=== PATIENT | male | born 1965 | race Caucasian/White ===

== ENCOUNTER 2019-01-01 08:23 | Emergency (ER) | payer BC ==
[~2019-01-01] VITALS: Ht 177.8 cm; Wt 86.2 kg
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
[2019-01-01 08:40] VITALS: BP 152/88
[2019-01-01] MEDS ORDERED: Ketorolac 30mg Inj IV ONE (09:00)
[2019-01-01] MEDS ORDERED: Morphine Sulfate 4mg/ml Inj (IV USE ONLY) IVP ONE (09:00)
--- NOTE | 2019-01-01 09:00 | NUR ---
ED Nurse Note: Went down for CT.
[2019-01-01] MEDS ORDERED: AMBIEN5 MG ORAL (09:04)
[2019-01-01] MEDS ORDERED: Morphine Sulfate 4mg/ml Inj (IV USE ONLY) ONE (09:09)
[2019-01-01] MEDS ORDERED: Ketorolac 30mg Inj ONE ×2 (09:09→09:15)
[2019-01-01 09:18] LABS: BASOPHILS % (AUTO) 2.4 % (0.0-2.0); EOSINOPHILS % (AUTO) 0.6 % (0.0-3.0); HEMOGLOBIN 15.5 G/DL (14.2-18.0); LYMPHOCYTES % (AUTO) 12.1 % (20.0-45.0); MEAN CORPUSCULAR VOLUME 94 FL (80-99); MONOCYTES % (AUTO) 7.1 % (1.0-10.0); NEUTROPHILS % (AUTO) 77.8 % (45.0-75.0); PLATELET COUNT 339 K/UL (150-450); RED CELL DISTRIBUTION WIDTH 12.3 % (11.6-14.8); WHITE BLOOD COUNT 12.4 K/UL (4.8-10.8)
--- NOTE | 2019-01-01 09:30 | NUR ---
ED Nurse Note: Came back from CT.
[2019-01-01 09:36] LABS: ANION GAP 7 mmol/L (5-15); BLOOD UREA NITROGEN 14 mg/dL (7-18); CALCIUM 9.3 MG/DL (8.5-10.1); CARBON DIOXIDE 29 MMOL/L (21-32); CHLORIDE 104 MMOL/L (98-107); CREATININE 1.1 MG/DL (0.55-1.30); POTASSIUM 4.1 MMOL/L (3.5-5.1); SODIUM 140 MMOL/L (136-145)
[2019-01-01 09:41] LABS: ALANINE AMINOTRANSFERASE 22 U/L (12-78); ALBUMIN 4.1 G/DL (3.4-5.0); ALBUMIN/GLOBULIN RATIO 1.3 (1.0-2.7); ALKALINE PHOSPHATASE 78 U/L (46-116); ASPARTATE AMINO TRANSFERASE 14 U/L (15-37); BILIRUBIN,TOTAL 0.3 MG/DL (0.2-1.0)
[2019-01-01 09:53] LABS: INR 0.9 (0.9-1.1)
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
[2019-01-01 12:11] VITALS: BP 140/70
[2019-01-01] MEDS ORDERED: NORCO 5-325 TA1 EACH ORAL (12:16)
[2019-01-01] MEDS ORDERED: IBUPROFEN600 MG ORAL (12:16)
[2019-01-01] MEDS ORDERED: Neosporin Oint Ud Pkt TOPIC ONE ×2 (12:45→13:07)
[2019-01-01 12:59] VITALS: BP 142/72
[2019-01-01] MEDS ORDERED: Bacitracin Oint 15gm Tube TOPIC ONE ×2 (13:08→13:15)
[2019-01-01] MEDS ORDERED: BACITRACIN15 GM TOPIC (13:21)
[2019-01-01] MEDS ORDERED: CEPHALEXIN500 MG ORAL (13:21)
[2019-01-01 13:55] VITALS: BP 135/70
--- NOTE | 2019-01-01 13:55 | NUR ---
ED Nurse Note: Pt cleared by ERMD for discharge. DC instructions/prescription was given and explained to pt and verbalized understanding of teachings. All medical deviecs such as ID band and Iv line removed. Pt is AAO x4, ambulatory and left with all personal belongings.
--- NOTE | 2019-01-02 10:44 | Diagnostic Imaging Report ---
Indication: Chest pain. Chest trauma Technique: Continuous helical transaxial imaging of the chest was obtained from the thoracic inlet to the upper abdomen. No intravenous contrast was administered. Coronal 2-D reformats were also obtained. Total Dose length Product (DLP): [address] Dose Index Volume (CTDIvol): 22.06 mGy Comparison: none Findings: There are acute nondisplaced fractures of the left third through sixth ribs in the lateral aspect of the chest. This is just lateral and anterior to the scapula. There is no associated hematoma significant soft tissue swelling or lung contusion. There is no pneumothorax. The lateral reconstructions best demonstrate an acute fracture of the upper sternum. This appears nondisplaced (#38-40/6 ). Associated soft tissue swelling noted. Ill-defined posterior basilar densities within the lungs likely represent atelectasis. There is no mediastinal fluid or hematoma. Vascular structures are unopacified on this exam. The heart is unremarkable. There is no pleural effusion. There is a duodenal diverticulum in the area of the second portion of the duodenum. Accessory spleen noted. Visualized upper abdomen is otherwise unremarkable. IMPRESSION: Acute upper sternal fracture nondisplaced. Acute rib fractures involving the left third through sixth ribs. No associated deeper injuries. Posterior basal atelectasis The CT scanner at [facility] is accredited by the [employer] and the scans are performed using dose optimization techniques as appropriate to a performed exam including Automatic Exposure control.
== END 2019-01-01 13:55 | disposition home or self-care (01) ==
LOC: EMR 09:06
DX: S22.42XA Multiple fractures of ribs, left side, initial encounter for closed fracture (principal); S22.22XA Fracture of body of sternum, initial encounter for closed fracture; V27.4XXA Motorcycle driver injured in collision with fixed or stationary object in traffic accident, initial encounter; Y92.411 Interstate highway as the place of occurrence of the external cause
CPT/HCPCS: 36415; 71250; 72131; 80053; 85025; 85610; 85730; 86850; 86900; 86901; 96374; 96375; 99284; J1885; J2270